=== PATIENT | male | born 1955 | race Caucasian/White ===

== ENCOUNTER 2025-02-21 01:03 | Day surgery (SDC) | payer MEDICARE, OTHER, SELFPAY ==
[2025-02-07 15:41] VITALS: BMI 33.0
--- OUTSIDE RECORDS SUMMARY | 2025-02-21 01:05 | XMS_ITS | Referral Summary ---
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 Name Role Phone Sravani Castellanos MD Primary Care Provider [phone] Nilesh Myers OT Unavailable Unavailable Windy Prieto MD Unavailable [phone] Encounters Date Type Department Care Team Description 01/25/2025 9:15 AM CDT Office Visit [facility] Cardiology [address] [place] [address] 162 [address] [place] [address] Kavon Lafleur MD Bilateral lower extremity edema (Primary Dx); Coronary artery disease of [place] artery of [place] heart with stable angina pectoris; Hyperlipidemia LDL goal <70; Primary hypertension; MICK (obstructive sleep apnea) 01/18/2025 7:41 AM CDT - 01/18/2025 11:59 PM CDT Hospital Encounter [facility] Orthopedics and Sports Medicine [address] [place] [address] [address] [place] [phone] Discharge Disposition: Discharge to home or self care 01/18/2025 10:00 AM CDT Office Visit [facility] Orthopedics and Sports Medicine [address] [place] [address] [address] [place] [phone] Ada Gale PA Aftercare following right hip joint replacement surgery (Primary Dx) 12/21/2024 9:30 AM CDT Telemedicine [facility] Medical [facility] Orthopedics and Sports Medicine [address] [facility] [address] [place] [address] Ada Gale PA Aftercare following right hip joint replacement surgery (Primary Dx) 12/06/2024 Telephone [facility] Orthopedics and Sports Medicine [address] [facility] [address] [place] [address] Windy Prieto MD 12/03/2024 [facility] Post Discharge Follow up phone call [facility] 1 [place] [address] Adrienne Carmen 11/29/2024 11:02 AM CDT - 11/30/2024 11:30 AM CDT Hospital Encounter [facility] 1 [place] [address] Windy Prieto MD Primary osteoarthritis of right hip Discharge Disposition: Discharge to home or self care 11/29/2024 1:05 PM CDT - 11/29/2024 3:30 PM CDT Surgery [facility] Operating Room 1 [place] [address] Windy Prieto MD Right Total Hip Arthroplasty- Anterior Approach 11/29/2024 12:22 PM CDT Anesthesia Event [facility] Operating Room 1 [place] [address] Josep Haile MD from Last 3 Months Allergies No known active allergies Medications latanoprost (XALATAN) 0.005 % ophthalmic solution 09/11/19 19 Active levothyroxine (SYNTHROID, LEVOTHROID) 175 mcg tablet Take 1 tablet (175 mcg total) by mouth tube coater before breakfast Active multivitamin tablet Take 1 tablet by mouth Active nitroglycerin (NITROSTAT) 0.[address] 1 tablet (0.4 mg total) under the tongue every 5 (five) minutes as needed for chest pain 90 tablet 10/27/19 24 Active aspirin 81 mg enteric coated tabletIndications: Deep Vein Thrombosis Prevention Take 1 tablet (81 mg total) by mouth 2 (two) times a day 84 tablet 12/01/19 25 026 Active lisinopriL (PRINIVIL,ZESTRIL) 20 mg tablet TAKE 1 TABLET DAILY 90 tablet 3 01/22/20 25 Active atorvastatin (LIPITOR) 40 mg tabletIndications: Coronary artery disease of [place] artery of [place] heart with stable angina pectoris,Hyperlipi demia LDL goal <70 TAKE 1 TABLET DAILY 90 tablet 3 01/22/20 25 Active omega-3 fatty acids-fish oil 300-1,000 mg capsule Take 2 capsules (2 g total) by mouth daily Active furosemide (LASIX) 20 mg tabletIndications: Bilateral lower extremity edema Take 1 tablet (20 mg total) by mouth daily as needed (swelling) 30 tablet 1 01/26/20 25 Active metoprolol tartrate (LOPRESSOR) 25 mg immediate release tabletIndications: Coronary artery disease of [place] artery of [place] heart with stable angina pectoris Take 1 tablet (25 mg total) by mouth 2 (two) times a day 180 tablet 3 01/26/20 25 Active ascorbic acid (VITAMIN C) 500 mg tablet,chewableInd ications:Vitamin deficiency prevention Take 1 tablet/chew tab (500 mg total) by mouth daily 30 tablet/chew tab 12/01/19 25 025 Discontin ued(Thera py completed ) celecoxib (CeleBREX) 200 mg capsuleIndications :Pain Take 1 capsule (200 mg total) by mouth 2 (two) times a day 84 capsule 12/01/19 25 025 Discontin ued(Thera py completed ) ferrous sulfate 325 mg (65 mg of elemental iron) tabletIndications: Iron Deficiency Anemia,Anemia prevention Take 1 tablet (325 mg total) by mouth daily with breakfast 30 tablet 12/01/19 25 025 Discontin ued(Thera py completed ) ondansetron ODT (ZOFRAN-ODT) 4 mg disintegrating tabletIndications: nausea and vomiting Take 1 tablet (4 mg total) by mouth every 6 (six) hours as needed for nausea or vomiting 20 tablet 2 12/01/19 25 025 Discontin ued(Thera py completed ) oxyCODONE-acetamin ophen (PERCOCET) 5-325 mg per tabletIndications: Pain Take 1-2 tablets by mouth every 4 (four) hours as needed for pain 40 tablet 12/01/19 25 025 Discontin ued(Thera py completed ) senna-docusate (PERICOLACE) 8.6-50 mgIndications:cons tipation Take 2 tablets by mouth 2 (two) times a day 60 tablet 2 12/01/19 25 025 Discontin ued(Radha py completed ) metoprolol tartrate (LOPRESSOR) 25 mg immediate release tabletIndications: Coronary artery disease of [place] artery of [place] heart with stable angina pectoris TAKE 1 TABLET TWICE A DAY 180 tablet 3 01/22/20 25 025 Discontin ued(Reord er) Active Problems Problem Noted Date Diagnosed Date Bilateral lower extremity edema 01/25/2025 Aftercare following right hip joint replacement surgery 12/20/2024 Coronary artery disease of [place] artery of [place] heart with stable angina pectoris 12/04/2018 Hypertension 11/06/2018 Abnormal EKG 11/06/2018 Abnormal stress test 11/06/2018 Hypothyroidism 11/06/2018 Hyperlipidemia LDL goal <70 11/06/2018 MICK (obstructive sleep apnea) 11/06/2018 Resolved Problems Problem Noted Date Diagnosed Date Resolved Date Primary osteoarthritis of right hip 11/18/2024 12/20/2024 Bilateral primary osteoarthritis of hip 10/07/2024 12/20/2024 Immunizations Immunization Administration Dates Next Due Moderna SARS-CoV-2 Monovalen t Vaccination (12+ YRS) 11/06/2021,05/29/2021,10/26/2020,2020 Social History Tobacco Use Types Packs/Day Years Used Date Smoking Tobacco: Never Cigarettes Smokeless Tobacco: Never Tobacco Cessation:Counseling Given: Not Answered Comments:some second hand exposure to late grandfather AUDIT-C Answer Date Recorded Q1: How often do you have a drink containing alc ohol? 2-4 times a month 11/29/2024 Q2: How many drinks containi ng alcohol do you have on a typical day when you are drinking? 1 or 2 11/29/2024 Q3: How often do you have si x or more drinks on one occasion? Never 11/29/2024 Personal Safety Answer Date Recorded Have you ever been in or are you currently in a harmful physical or emotional relationship or is someone making you feel afraid or unsafe? Denies 11/29/2024 Sex and Gender Information Value Date Recorded Sex Assigned at Not on file Legal Sex Male 7:25 PM LOOP SEWER Gender Identity Male 10/14/2019 10:45 PM CDT Sexual Orientation Straight 10/14/2019 10 :45 PM CDT Last Filed Vital Signs Vital Sign Reading Time Taken Comments Blood Pressure 120/74 01/25/2025 9:17 AM CDT Pulse 62 01/25/2025 9:17 AM CDT Temperature 36.5 C (97.7 F) 11/30/2024 7:47 AM CDT Respiratory Rate 18 11/30/2024 7:47 AM CDT Oxygen Saturation 95% 01/25/2025 9:17 AM CDT Inhaled Oxygen Concentration - - Weight 117 kg (258 lb) 01/25/2025 9:17 AM CDT Height 185.4 cm (6' 1) 01/25/2025 9:17 AM CDT Body Mass Index 34.04 01/25/2025 9:17 AM CDT Plan of Treatment Not on file Medical Devices Implanted Type Area Chicken Catcher Device Identifier Shelf Expiration Date Model / Serial / Lot [employer]uy [employer] [place] 62mm 36mm Hip Neutral Liner Acetabular Altrx Sterile Latex Free [id number] - [id number] Implanted:Qty: 1 on 11/29/2024 by Windy Prieto MD at [facility] Right: Hip [employer] [id number] 05/03/2029 [id number] / / [id number] [employer] [place] 62mm Sector Hip Shell Acetabular Gription Sterile Latex Free [id number] - [id number] Implanted:Qty: 1 on 11/29/2024 by Windy Prieto MD at [facility] Right: Hip [employer] [id number] 12/01/2033 [id number] / / [id number] [employer] [place] 6.5mm 35mm Acetabular Cancellous Screw Bone Sterile 1217-35-500 - [id number] Implanted:Qty: 1 on 11/29/2024 by Windy Prieto MD at [facility] Right: Hip [employer] [id number] 09/03/2034 1217-35-500 / / [id number] [employer] Actis L107 Mm Collar Hip 6 High Offset Stem Femoral [id number] - [id number] Implanted:Qty: 1 on 11/29/2024 by Windy Prieto MD at [facility] Right: Hip [employer] [id number] 10/01/2034 [id number] / / [id number] [employer] Articul/Zachary 36mm Cementless Hip +5mm 12/14 Taper Head Femoral Latex Free [id number] - [id number] Implanted:Qty: 1 on 11/29/2024 by Windy Prieto MD at [facility] Right: Hip [employer] [id number] 10/01/2029 [id number] / / [id number] Procedures Procedure Name Priority Date/Time Associated Diagnosis Comments POCT LIPID PANEL Routine 01/25/2025 9:17 AM CDT Coronary artery disease of [place] artery of [place] heart with stable angina pectoris Hyperlipidemia LDL goal <70 XR HIP RIGHT 2 OR 3 VIEWS Schedule Routine, Read Routine (OP Routine) 01/18/2025 9:37 AM CDT Aftercare following right hip joint replacement surgery SURGICAL PATHOLOGY Routine 11/30/2024 1: 50 PM CDT Primary osteoarthritis of right hip EGFR Routine 11/30/2024 4:55 AM CDT CBC WITHOUT DIFFERENTIAL Routine 11/30/2024 4:55 AM CDT BASIC METABOLIC PANEL Routine 11/30/2024 4:55 AM CDT XR PELVIS ORTHO VIEW IP Routine 11/29/2024 3:08 PM CDT FL FLUOROSCOPY < 1 HOUR IP Routine 11/29/2024 2:17 PM CDT XR HIP RIGHT 1 VIEW IP Routine 11/29/2024 2 :17 PM CDT ANESTHESIA SPINAL BLOCK Routine 11/29/2024 12:52 PM CDT ARTHROPLASTY TOTAL HIP - ANTERIOR APPROACH 11/29/2024 12:03 PM CDT Primary osteoarthritis of right hip Special Needs Anterior Approach, [Depuy- Actis], Omnitrac, Aquamantys, 1 Liter Beta Rinse, Pt to Stay PROTIME-INR STAT 11/29/2024 11:29 AM CDT APTT STAT 11/29/2024 11:29 AM CDT PSA SCREEN Routine 11/04/2024 9:23 AM CDT from Last 3 Months or Most Recently Relevant to Health Maintenance Results * POCT lipid panel (01/25/2025 9:17 AM CDT) Cholesterol, POC 122 <200 MG/DL HDL, POC 42 >=40 mg/dL Triglycerides, POC 113 <=149 mg/dL LDL Cholesterol POC 58 <=129 mg/dL Chol/HDL Ratio, POC 1.4 NONE Non-HDL Cholesterol, POC 81 NONE mg/dL Cholesterol Total, POC 122 30 - 199 mg/dL Capillary blood 01/25/2025 9 :17 AM CDT Kavon Lafleur MD POINT OF CARE TEST ORDERA BLES Final Result * XR Hip Right 2 or 3 Views (01/18/2025 9:37 AM CDT) Anatomical Region Laterality Modality Lower Extremities, Hip, Pelvis Right D igital Radiography Narrative 01/18/2025 10:22 AM CDT Radiographs taken of the right hip today reveal a total hip arthroplasty in appropriate position with no interval change from the time of surgery. Ada ARAMBULA IMG XR PROCEDURES Fin al Result * Surgical pathology (11/30/2024 1:50 PM CDT) Tissue (Bone Fragment(s),) 11/29/2024 1:49 PM CDT Narrative PATHOLOGY [facility] ([facility]) - 12/03/2024 9:43 AM CDT EPIC results best viewed via link to PDF [facility] Department of Pathology [address] [place] [id number] Note to Patients: This report may contain a detailed description of human tissue sent by a health care provider to the laboratory for pathologic evaluation. The content of this report is essential for diagnosis and may provide important critical findings. This information may be unfamiliar to patients to review without a medical professional present. It is advised that the patient review this report in the presence of a health care provider who can answer questions and explain the details. Final Report Patient Name: WINDY BOGGS Address: [address] [place] [address] , [place] [address] Gender: M : 1955 (Age: 69) Service: Surgery Location: [facility] Hospital #: [id number] Patient Type: [facility] OP in bed Taken: 11/30/2024 Received: 11/30/2024 Accessioned: 11/30/2024 Reported: 12/03/2024 Physician(s):Dr. Windy Prieto M.D. Diagnosis: Right hip, arthroplasty: - Degenerative joint disease consistent with osteoarthritis. nAtonio Light M.D. Report Electronically Reviewed and Signed Out By Antonio Light M.D. 12/03/2024 09:43:56 Specimen(s) Received: A: Right hip bone fragments and tissue Microscopic Description: Sections show fragments of benign bone and cartilage. The overlying articular cartilaginous surface shows degenerative features including areas of erosion with fissures and clefting. The underlying medullary space shows some focal medullary fibrosis with a few scattered lymphoid aggregates present. No significant inflammatory infiltrate is seen. There is no evidence of malignancy. In order to further assess the small lymphoid aggregates, a panel of immunohistochemical stains was performed with adequate controls. A CD3, CD5, CD20, and CD79a show the lymphocytes to be a mix of T and B-cells. There is no aberrant expression of CD5 or CD10 seen. CD23 and cyclin-D1 are also negative. There is no definitive evidence of a lymphoproliferative disorder. Clinical History: Right hip bone fragments and tissue. Right total hip arthroplasty - anterior approach. Gross Description: The specimen is received in a single container labeled WINDY BOGGS and right hip. It is a 6.1 cm in diameter femoral head and separate 20 cc aggregate of monae gritty hemorrhagic cortical and cancellous bone. The articular surface of the femoral head shows degenerative changes of the cartilage with erosion and eburnation. The femoral neck margin is smooth. The specimen is bisected revealing no subchondral gross lesions. Skiving Machine Operator sections are submitted in one cassette after decalcification. Ajay Alarcon R.N., P.A./Kelly Figueroa M.D. REPORT IMAGES AND SCANNED DOCUMENTS, IF INCLUDED, ONLY VIEWABLE IN PDF VERSION OF REPORT The performance characteristics of some immunohistochemical stains, fluorescence in-situ hybridization tests and immunophenotyping by flow cytometry cited in this report (if any) were determined by the Surgical Pathology Department at [facility] as part of an ongoing quality internship program and in compliance with federally mandated regulations drawn from the Clinical Laboratory Improvement Act of 1988 (CLIA '88). Some of these tests rely on the use of analyte specific reagents and are subject to specific labeling requirements by the US Food and Drug Administration. Such diagnostic tests may only be performed in a facility that is certified by the Department of Health and Human Services as a high complexity laboratory under CLIA '88. The FDA has determined that such clearance or approval is not necessary. This test is used for clinical purposes. It should not be regarded as investigational or for research. Nevertheless, federal rules concerning the medical use of analyte specific reagents require that the following disclaimer be attached to the report: This test was developed and its performance characteristics determined by the Surgical Pathology Department [facility]. It has not been cleared or approved by the U. S. Food and Drug Administration. Note for decalcified specimens: This assay has not been validated on decalcified tissues. Results should be interpreted with caution given the possibility of false negativity on decalcified specimens us Windy Prieto MD LAB PATHOLOGY ORDERABLES Final Result PATHOLOGY [facility] ([facility]) 1 [place], [place] [id number] * eGFR (11/30/2024 4:55 AM CDT) eGFR >90 >=60 mL/min/1. 73 m2 Comment: Interpretive Data Reference Interval Normal >/= 90 mL/min/1.73m2 Mildly decreased* 60 - 89 mL/min/1.73m2 Mildly to moderately decreased 45 - 59 mL/min/1.73m2 Moderately to severely decreased 30 - 44 mL/min/1.73m2 Severely decreased 15 - 29 mL/min/1.73m2 Kidney Failure < 15 mL/min/1.73m2 *Relative to young adult level Estimated glomerular filtration rate is determined by the 2020 CKD-EPI equation recommended by the National Kidney Foundation (A Unifying Approach to GFR Estimation: Recommendations of the NKF-ASK Task Force on Reassessing the Inclusion of Race in Diagnosing Kidney Disease, JASN 2020). The CKD-EPI equation should not be used for patients with unstable renal function and has not been validated in children and those over 70. Current interpretive data was last reviewed 2021. Blood 11/30/2024 4:55 AM CDT 11/30/2024 5:16 AM CDT Ada ARAMBULA LAB BLOOD ORDERABLES Final Result [facility] ([facility]) [address] [facility] Department of Laboratories [place], [place] [id number] * (ABNORMAL) CBC without differential (11/30/2024 4:55 AM CDT) WBC 16.19(H) 3.80 - 9.90 K/cumm Hgb 13.3 13.0 - 17.5 g/dL [facility] ([facility]) Hct 40.4 38.9 - 50.3 % [facility] ([facility]) Plt 235 150 - 400 K/cumm [facility] ([facility]) MPV 10.6 9.1 - 12.3 fL [facility] ([facility]) RBC 4.45 4.30 - 5.80 M/cumm [facility] ([facility]) MCV 90.8 81.3 - 96.4 fL [facility] ([facility]) MCH 29.9 27.1 - 33.3 pg [facility] ([facility]) MCHC 32.9 32.3 - 35.7 g/dL [facility] ([place]) RDW CV 13.5 11.1 - 14.9 % [facility] ([place]) RDW SD 44.8 35.7 - 48.1 fL [facility] NRBC abs 0.00 0.00 - 0.01 K/cumm [facility] ([place]) Blood 11/30/2024 4:55 AM CDT 11/30/2024 5:16 AM CDT Ada ARAMBULA LAB BLOOD ORDERABLES Final Result [facility] ([facility]) 1 [facility] Department [place] [address] * Basic metabolic panel (11/30/2024 4:55 AM CDT) Sodium 141 135 - 145 mmol/L Potassium, pl 4.4 3.3 - 4.9 mmol/L [facility] Chloride 109 97 - 110 mmol/L [facility]) CO2 22 22 - 32 mmol/L [facility] ([facility]) Anion gap 11 2 - 15 mmol/L [facility] BUN 14 6 - 25 mg/dL [facility] Creatinine 0.88 0.80 - 1.30 mg/dL [facility] Glucose 140 70 - 199 mg/dL [facility] ([facility]) Comment: Interpretive Data Fasting glucose >/= 126 mg/dl is diagnostic for diabetes. Fasting is defined as no caloric intake for at least 8 hours. Fasting glucose between 100 mg/dl to 125 mg/dl is diagnostic of prediabetes. In a patient with classic symptoms of hyperglycemia or hyperglycemic crisis, a random glucose >/= 200 mg/dl is diagnostic for diabetes. In the absence of unequivocal hyperglycemia, results should be confirmed by repeat testing. The classification and Diagnosis of Diabetes Diabetes Care 2021; 46: S19-S40. Current interpretive data was last revised 2022. Calcium 8.9 8.5 - 10.3 mg/dL [facility] ([facility] Blood 11/30/2024 4:55 AM CDT 11/30/2024 5:16 AM CDT Ada AARMBULA LAB BLOOD ORDERABLES Final Result [facility] [place] 1 [facility] Department [place] [address] * XR Pelvis Ortho View (11/29/2024 3:08 PM CDT) Anatomical Region Laterality Modality Body, Pelvis N/A Computed Radiogr aphy 11/29/2024 5:24 PM CDT Narrative 11/29/2024 5:24 PM CDT EXAM DESCRIPTION: XR PELVIS ORTHO VIEW REASON FOR STUDY: in pacu s/p aminata Post op TECHNIQUE: Frontal radiograph of the pelvis. COMPARISON: None FINDINGS: BONES/JOINTS: Right hip arthroplasty. Advanced left hip arthritis. SOFT TISSUES: Unremarkable. IMPRESSION: Uncomplicated appearance of right hip arthroplasty. Severe left hip arthritis. THIS IS AN ELECTRONICALLY VERIFIED FINAL REPORT 11/29/2024 5:24 PM - Electronically signed by North Gutierrez M.D. AR: WAN Report ID: [id number] Reading Location: [id number] Procedure Note North Gutierrez MD - 11/29/2024 EXAM DESCRIPTION: XR PELVIS ORTHO VIEW REASON FOR STUDY: in pacu s/p aminata Post op TECHNIQUE: Frontal radiograph of the pelvis. COMPARISON: None FINDINGS: BONES/JOINTS: Right hip arthroplasty. Advanced left hip arthritis. SOFT TISSUES: Unremarkable. IMPRESSION: Uncomplicated appearance of right hip arthroplasty. Severe left hip arthritis. THIS IS AN ELECTRONICALLY VERIFIED FINAL REPORT 11/29/2024 5:24 PM - Electronically signed by North Gutierrez M.D. AR: WAN Report ID: [id number] Reading Location: [id number] Ada ARAMBULA IMG XR PROCEDURES Fin al Result * FL Fluoroscopy < 1 Hour (11/29/2024 2:17 PM CDT) Narrative [facility] - 11/29/2024 2:20 PM CDT The images from this study are not interpreted by Radiology. Please refer to the physician's procedure / OR operative note. Windy Prieto MD IMG FLUOROSCOPY PROCEDUR ES Final Result [facility] * XR Hip Right 1 View (11/29/2024 2:17 PM CDT) Anatomical Region Laterality Modality Lower Extremities, Hip, Pelvis Right R adio Fluoroscopy 11/29/2024 5:23 PM CDT Narrative 11/29/2024 5:23 PM CDT EXAM DESCRIPTION: XR HIP RIGHT 1 VIEW REASON FOR STUDY: pain Fluoro 4.3 mGy 0.83 TECHNIQUE: 8 fluoroscopic views of the right hip . COMPARISON: 10/07/2024 FINDINGS: BONES/JOINTS: Progressive placement of a right hip arthroplasty is demonstrated. No complication is seen. SOFT TISSUES: Unremarkable. IMPRESSION: Fluoroscopic guidance for right hip arthroplasty. THIS IS AN ELECTRONICALLY VERIFIED FINAL REPORT 11/29/2024 5:23 PM - Electronically signed by North Gutierrez M.D. AR: WAN Report ID: [id number] Reading Location: [id number] Procedure Note North Gutierrez MD - 11/29/2024 EXAM DESCRIPTION: XR HIP RIGHT 1 VIEW REASON FOR STUDY: pain Fluoro 4.3 mGy 0.83 TECHNIQUE: 8 fluoroscopic views of the right hip . COMPARISON: 10/07/2024 FINDINGS: BONES/JOINTS: Progressive placement of a right hip arthroplasty is demonstrated. No complication is seen. SOFT TISSUES: Unremarkable. IMPRESSION: Fluoroscopic guidance for right hip arthroplasty. THIS IS AN ELECTRONICALLY VERIFIED FINAL REPORT 11/29/2024 5:23 PM - Electronically signed by North Gutierrez M.D. AR: WAN Report ID: [id number] Reading Location: [place] [address] Widny Prieto MD IMG XR PROCEDURES Final Result * Spinal Block (11/29/2024 12:52 PM CDT) Narrative Yuly Mi CRNA - 11/29/2024 12:52 PM CDT Yuly Mi CRNA 11/29/2024 12:53 PM Spinal Block Patient location: OR End time: 11/29/2024 12:26 PM Reason for block: primary anesthetic Staff: Placed by: TELECOMMUNICATOR SUPERVISOR:Yuly Mi CRNA Procedure prep: Preprocedure checklist: patient identified, procedure contraindications assessed, procedure consent, surgical consent, IV checked, risks, benefits and alternatives discussed, monitors and equipment checked and timeout performed Patient position: sitting Procedure performed while patient: sedate with meaningful contact Monitoring: oximetry and blood pressure Prep solution: chlorhexadine/alcohol PPE: provider hat/mask, sterile gloves and sterile drape Skin infiltrated with lidocaine 1%: yes Spinal: Approach: midline Introducer used: no Location: L3-4 Spinal injection: CSF demonstrated, no aspiration of heme and no paresthesias noted Number of attempts: 1 Spinal Needle: Needle type: Quincke Needle gauge: 22 G Needle length: 9 cm Assessment: Sensory deficit - left: full eval pending Sensory deficit - right: full eval pending Events: patient tolerated procedure well with no complications Josep Haile MD ANESTHESIA ORDERABLES Final Result * aPTT (11/29/2024 11:29 AM CDT) aPTT 38 28 - 38 sec [facility] ([place]) Comment: Interpretive Data Heparin therapeutic range: 66.0 - 100.0 seconds. Range based on correlation with therapeutic heparin activity range of 0.3 - 0.7 Units/mL. Current interpretive data was last revised on 2023. Blood 11/29/2024 11:2 9 AM CDT 11/29/2024 11:31 AM CDT Windy Prieto MD LAB BLOOD ORDERABLES Fin al Result [facility]) 1 [facility] [facility] [employer] (R[employer]) [place] [address] * Protime-INR (11/29/2024 11:29 AM CDT) PT 12.4 9.7 - 13.0 sec [facility] [place] INR 1.14 0.90 - 1.20 [facility] ([place]) Comment: Interpretive data Oral anticoagulant therapeutic ranges: Venous thromboembolism prophylaxis or treatment: 2.0-3.0 CARDIOLOGY Standard range: 2.0-3.0 High-intensity range: 2.5-3.5 Refer to indication-specific guidelines for appropriate target ranges for prosthetic heart valve replacement. Current interpretive data was last revised on 2019. Blood 11/29/2024 11:2 9 AM CDT 11/29/2024 11:31 AM CDT Windy Prieto MD LAB BLOOD ORDERABLES Fin al Result Performing Organization Address City/[facility] Co de Phone Number M[facility] Lopez[place]) 1 [facility] [place] [address] * PSA screen (11/04/2024 9:23 AM CDT) PSA-Total 5.71 <=6.20 ng/mL Comment: Interpretive Data AGE SEX REFERENCE INTERVAL 0 minutes-150 years Female None 0 minutes-49 years Male None 50-59 years Male 0-3.90 60-69 years Male 0-5.40 70-79 years Male 0-6.20 80-150 years Male 0-6.20 The Renuka PSA Total assay procedure was used. Results from different manufacturers or methods may not be comparable. Serial testing should be performed using the same method. Current interpretive data last revised 21. Blood 11/04/2024 9:23 AM CDT 11/04/2024 9:37 AM CDT Sravani Castellanos MD LAB BLOOD ORDERABLES Final Resu lt [facility] ([place]) 1 [facility] Department of [employer] 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
--- OUTSIDE RECORDS SUMMARY | 2025-02-21 01:06 | XMS_ITS | Clinical Summary ---
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 Active multivitamin tablet Take 1 [...] 40 mg tabletIndications: 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,Hyperlipi demia LDL [...] immediate release tabletIndications: 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 Take 1 [...] 60 tablet 2 12/01/19 25 025 Discontin ued(Thera py completed ) metoprolol tartrate (LOPRESSOR) 25 mg immediate release tabletIndications: 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 TAKE 1 TABLET TWICE A DAY 180 tablet 3 01/22/20 25 025 Discontin ued(Reord er) Active Problems Problem Noted Date Diagnosed Date Bilateral lower extremity edema 01/25/2025 Aftercare following right hip joint replacement surgery 12/20/2024 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 12/04/2018 Hypertension 11/06/2018 Abnormal EKG 11/06/2018 Abnormal stress test 11/06/2018 Hypothyroidism 11/06/2018 Hyperlipidemia LDL goal <70 11/06/2018 MICK (obstructive sleep apnea) 11/06/2018 Resolved Problems Problem Noted Date Diagnosed Date Resolved Date Primary osteoarthritis of right hip 11/18/2024 12/20/2024 Bilateral primary osteoarthritis of hip 10/07/2024 12/20/2024 Encounters Date Type Department Care Team Description 01/25/2025 9:15 AM CDT Office Visit [facility] Medical [facility] Cardiology [address] [facility] [address] [place] [address] Kavon Lafleur MD Bilateral lower extremity edema (Primary Dx); 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; Hyperlipidemia LDL goal <70; Primary hypertension; MICK (obstructive sleep apnea) 01/18/2025 10:00 AM CDT Office Visit [facility] Medical [facility] Orthopedics and Sports Medicine [address] [place] [address] [place] [phone] Ada Gale PA Aftercare following right hip joint replacement surgery (Primary Dx) 01/18/2025 7:41 AM CDT - 01/18/2025 11:59 PM CDT Hospital Encounter [facility] Orthopedics and Sports Medicine [address] [place] [address] [address], [place] [phone] Discharge Disposition: Discharge to home or self care 12/21/2024 9:30 AM CDT Telemedicine [facility] Orthopedics and Sports Medicine [address] [place] [address] [address] [place] [phone] Ada Gale PA Aftercare following right hip joint replacement surgery (Primary Dx) 12/06/2024 Telephone [facility] Orthopedics and Sports Medicine [address] [facility] [address] [place] [phone] Windy Prieto MD 12/03/2024 [facility] Post Discharge Follow up phone call [facility] Surgery Care 1 [place] [address] Adrienne Carmen 11/29/2024 1:05 PM CDT - 11/29/2024 3:30 PM CDT Surgery [facility] Operating Room 1 [place] [address] Windy Prieto MD Right Total Hip Arthroplasty- Anterior Approach 11/29/2024 12:22 PM CDT Anesthesia Event [facility] Operating Room 1 [place] [address] Josep Haile MD 11/29/2024 11:02 AM CDT - 11/30/2024 11:30 AM CDT Hospital Encounter [facility] Surgery Care 1 [place] [address] Windy Prieto MD Primary osteoarthritis of right hip Discharge Disposition: Discharge to home or self care from Last 3 Months Immunizations Immunization Administration Dates Next Due Moderna SARS-CoV-2 Monovalen t Vaccination (12+ YRS) 11/06/2021,05/29/2021,10/26/2020,2020 Surgical History Surgery Date Site/Laterality Comments COLONOSCOPY CARDIAC CATHETERIZATION WISDOM TOOTH EXTRACTION JOINT REPLACEMENT right hip 11/29/24 Medical History Medical History Date Comments Glaucoma pre-glaucoma 2011 Heart disease 2019 Hypertension ~2008 Sleep apnea ~2004 Thyroid disease 2009 [place] (myocardial infarction) (HCC) Family History Medical History Relation Name Comments Heart attack Father Windy Cancer Mother Priya Relation Name Status Comments Father Windy Mother Priya Social History Tobacco Use Types Packs/Day Years [...] on file Legal 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 Gender Identity Male 10/14/2019 10:45 PM CDT Sexual Orientation Straight 10/14/2019 10 :45 PM CDT Obstetrics History Last Filed Vital Signs Vital Sign Reading [...] 01/25/2025 9:17 AM CDT Plan of Treatment Health Maintenance Due Date Last Done Comments Colon Cancer Screening-Colonoscopy 1955 Depression Screening 1955 Hepatitis C Screening 1955 Hepatitis B Screening 1971 Pneumococcal vaccine 65+ (1 of 2 - PCV) 1972 Zoster Vaccine (2 of 3) 05/30/2015 04/04/2015 Well Visit 65+ 2018 DTaP/Tdap/Td Vaccine (2 - Td or Tdap) 03/02/2022 03/02/2012, 08/04/2002, 08/04/1990 Covid-19 Vaccine ( - 2023-2 5 season) 2024 11/06/2021, 05/29/2021, 10/26/2020, Additional history exists Influenza Vaccine (Season Ended) 2025 Fall Risk Assessment 11/30/2025 11/30/2024, 11/18/2024, 11/06/2018 Prostate Cancer Screening-PSA Discontinued 11/04/2024 Medical Devices Implanted Type Area Primer Expeditor And Drier Device Identifier Shelf Expiration Date Model / Serial / Lot [employer] [place] 62mm 36mm Hip Neutral Liner Acetabular Altrx Sterile Latex Free [id number] - [id number] Implanted:Qty: 1 on 11/29/2024 by Windy Prieto MD at [facility] Right: Hip [employer] [id number] 05/03/2029 [id number] / / [id number] [employer] [place] 62mm Sector Hip Shell Acetabular Gription Sterile Latex Free [id number] - [id number] Implanted:Qty: 1 on 11/29/2024 by Windy Prieto MD at [facility] Right: Hip [employer] [id number] 12/01/2033 [id number] / / [id number] [employer] [place] 6.5mm 35mm Acetabular Cancellous Screw Bone Sterile 1217-35-500 - [id number] Implanted:Qty: 1 on 11/29/2024 by Windy Prieto MD at [facility] Right: Hip [employer] [id number] 09/03/2034 1217-35-500 / / [id number] [employer] Actis L107 Mm Collar Hip 6 High Offset Stem Femoral [id number] - [id number] Implanted:Qty: 1 on 11/29/2024 by Windy Prieto MD at [facility] Right: Hip [employer] [id number] 10/01/2034 [id number] / / [id number] [employer] Articul/Zachary 36mm Cementless Hip +5mm 12/14 Taper Head Femoral Latex Free [id number] - [id number] Implanted:Qty: 1 on 11/29/2024 by Windy Prieto MD at [facility] Right: Hip [employer] [id number] 10/01/2029 [id number] / / [id number] Procedures Procedure Name Priority Date/Time Associated Diagnosis Comments POCT LIPID PANEL Routine 01/25/2025 9:17 AM CDT 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 Hyperlipidemia LDL [...] Fragment(s),) 11/29/2024 1:49 PM CDT Narrative PATHOLOGY [facility] ([place]) - 12/03/2024 9:43 AM CDT EPIC results best viewed via link to PDF [facility] Department of Pathology [address] [place] [id number] Note to Patients: This report may contain [...] Final Report Patient Name: WINDY BOGGS Address: [address] [place] [address] , [place] [address] Gender: M : 1955 (Age: 69) Service: Surgery Location: [facility] #: [id number] Patient Type: [facility] EP OP in bed Taken: 11/30/2024 Received: 11/30/2024 Accessioned: 11/30/2024 Reported: 12/03/2024 Physician(s):Dr. Windy Prieot M.D. Diagnosis: Right hip, arthroplasty: - Degenerative joint disease consistent with osteoarthritis. Antonio Light M.D. Report Electronically Reviewed and Signed [...] is bisected revealing no subchondral gross lesions. Manager Cardiology sections are submitted in one cassette after decalcification. Ajay Alarcon R.N., P.A./Kelly Figueroa M.D. REPORT IMAGES AND SCANNED DOCUMENTS, IF INCLUDED, ONLY VIEWABLE IN PDF VERSION OF REPORT The performance characteristics of some immunohistochemical stains, fluorescence in-situ hybridization tests and immunophenotyping by flow cytometry cited in this report (if any) were determined by the Surgical Pathology Department at [facility] as part of an ongoing quality control lab tech program and in compliance with federally mandated [...] characteristics determined by the Surgical Pathology Department [facility]. It has not been cleared or approved by the U. S. Food and Drug Administration. Note for decalcified specimens: This assay has not been validated on decalcified tissues. Results should be interpreted with caution given the possibility of false negativity on decalcified specimens Windy Prieto MD LAB PATHOLOGY ORDERABLES Final Result PATHOLOGY [facility] ([address] [address] * eGFR (11/30/2024 4:55 AM CDT) eGFR [...] LAB BLOOD ORDERABLES Final Result [facility] ([place]) 1 [facility] [place] [address] * (ABNORMAL) CBC without differential (11/30/2024 4:55 [...] RDW CV 13.5 11.1 - 14.9 % [facility] ([place]) RDW SD 44.8 35.7 - 48.1 fL [facility] ([place]) NRBC abs 0.00 0.00 - 0.01 K/cumm [facility] ([place]) Blood 11/30/2024 4:55 AM CDT 11/30/2024 5:16 AM CDT Ada ARABMULA LAB BLOOD ORDERABLES Final Result [facility] ([place]) 1 [facility] [place] [address] * Basic metabolic panel (11/30/2024 4:55 AM CDT) Sodium 141 135 - 145 mmol/L Potassium, pl 4.4 3.3 - 4.9 mmol/L [facility] ([place]) Chloride 109 97 - 110 mmol/L [facility] ([place] CO2 22 22 - 32 mmol/L [facility]) Anion gap 11 2 - 15 mmol/L [facility] BUN 14 6 - 25 mg/dL [facility] ([place]) Creatinine 0.88 0.80 - 1.30 mg/dL [facility] ([place]) Glucose 140 70 - 199 mg/dL [facility] ([place]) Comment: Interpretive Data Fasting glucose [...] 2022. Calcium 8.9 8.5 - 10.3 mg/dL [facility] ([place]) Blood 11/30/2024 4:55 AM CDT 11/30/2024 5:16 AM CDT Ada ARAMBULA LAB BLOOD ORDERABLES Final Result [facility] ([place]) 1 [facility] [place] [address] * XR Pelvis Ortho View (11/29/2024 3:08 [...] North Gutierrez M.D. [place]: WAN Report ID: [id number] Reading Location: [id number] Procedure Note North Gutierrez MD - 11/29/2024 [...] North Gutierrez M.D. [place]: WAN Report ID: [id number] Reading Location: [id number] Ada ARAMBULA IMG XR PROCEDURES Fin al Result * [place] Fluoroscopy < 1 Hour (11/29/2024 2:17 PM CDT) Narrative [facility] - 11/29/2024 2:20 PM CDT The images from this study are not interpreted by Radiology. Please refer to the physician's procedure / OR operative note. us Windy Prieto MD IMG FLUOROSCOPY PROCEDUR ES [...] North Gutierrez M.D. [place]: WAN Report ID: [id number] Reading Location: [id number] Procedure Note North Gutierrez MD - 11/29/2024 [...] North Gutierrez M.D. [place]: WAN Report ID: [id number] Reading Location: [id number] Windy Prieto MD IMG XR PROCEDURES Final Result * Spinal Block (11/29/2024 12:52 PM CDT) Narrative Yuly Mi CRNA - 11/29/2024 12:52 PM CDT Yuly Mi CRNA 11/29/2024 12:53 PM Spinal Block Patient location: OR End time: 11/29/2024 12:26 PM Reason for block: primary anesthetic Staff: Placed by: FRONT END DRUPAL DEVELOPER:Yuly Mi CRNA Procedure prep: Preprocedure checklist: patient [...] patient tolerated procedure well with no complications us Josep Haile MD ANESTHESIA ORDERABLES Final Result * aPTT (11/29/2024 11:29 AM CDT) aPTT 38 28 - 38 sec [facility] ([place]) Comment: Interpretive Data Heparin therapeutic range: 66.0 - 100.0 seconds. Range based on correlation with therapeutic heparin activity range of 0.3 - 0.7 Units/mL. Current interpretive data was last revised on 2023. Blood 11/29/2024 11:2 9 AM CDT 11/29/2024 11:31 AM CDT Windy Prieto MD LAB BLOOD ORDERABLES Fin al Result [facility] ([place]) 1 [facility] [place] [address] * Protime-INR (11/29/2024 11:29 AM CDT) PT 12.4 9.7 - 13.0 sec [facility] ([place]) INR 1.14 0.90 - 1.20 [facility] ([place]) Comment: Interpretive data Oral anticoagulant therapeutic ranges: Venous thromboembolism prophylaxis or treatment: 2.0-3.0 CARDIOLOGY Standard range: 2.0-3.0 High-intensity range: 2.5-3.5 Refer to indication-specific guidelines for appropriate target ranges for prosthetic heart valve replacement. Current interpretive data was last revised on 2019. Blood 11/29/2024 11:2 9 AM CDT 11/29/2024 11:31 AM CDT Windy Prieto MD LAB BLOOD ORDERABLES Fin al Result Performing Organization Address [facility] de Phone Number [facility] ([place]) 1 [facility] [place] [place] [address] * PSA screen (11/04/2024 9:23 AM CDT) [...] 9:23 AM CDT 11/04/2024 9:37 AM CDT us Sravani Castellanos MD LAB BLOOD ORDERABLES Final Resu lt Performing Organization Address [facility] de Phone Number [facility] ([place]) 1 [place] [address] from Last 3 Months or Most Recently Relevant to Health Maintenance Insurance MEDICARE [facility] [place] [facility]ICARE [facility] [place] Advance Directives For more information, please contact: [phone] * Full Code (Latest Code Status on File) Date Activated Date Inactivated Comments 11/29/2024 3:14 PM 11/30/2024 3:36 PM Care Teams Schedule Clerk Relationship Specialty Start Date End Date Sravani Castellanos MD PCP - General Family Medicine 11/07/21 Nilesh Myers, OT Occupational Therapist Occupational Therapy 11/23/24 Windy Prieto MD [address] [place] [address] DR NDIAYE [address] [place] [id number] Surgeon Orthopedic Surgery 11/30/24
[2025-02-21 08:35] VITALS: BP 133/76; PULSE 63; RESP 16; TEMP 35.8; O2SAT 97; BMI 33.3
--- NOTE | 2025-02-21 08:46 | SUR.PREOP ---
Patient had a right hip replacement in november 2024. was notified and no antibiotics ordered per 's request.
--- NOTE | 2025-02-21 08:50 | WPDANESEPPF ---
Anes - Initial Pre Proc Eval Procedure: Operation Date: 02/21/25 10:00 Proposed Procedures p Screening Colonoscopy - Naeem Shaver MD Date/Time: 02/21/25 08:50 Surgeon: Naeem Shaver MD Pre Op Diagnosis: screening Patient Data Age: 69 Gender: M Height: 1.85 m Weight: 114.5 kg Last Vital Signs Temp 96.4 F L 02/21/25 08:35 Pulse 63 02/21/25 08:35 Resp 16 02/21/25 08:35 BP 133/76 02/21/25 08:35 Pulse Ox 97 02/21/25 08:35 O2 Del Method Room Air 02/21/25 08:35 Allergies Allergy/AdvReac Type Severity Reaction Status Date / Time No Known Allergies Allergy Verified 02/21/25 08:41 Home Medications ?Medication ?Instructions ?Recorded ?Confirmed ?Type aspirin 81 mg tablet,delayed 81 mg PO DAILY 07/21/19 02/21/25 History release (Aspir-) atorvastatin 40 mg tablet 40 mg PO HS 07/21/19 02/21/25 History latanoprost 0.005 % eye drops 1 drp ophthalmic (eye) HS 07/21/19 02/21/25 History metoprolol tartrate 25 mg tablet 25 mg PO BID 07/21/19 02/21/25 History nitroglycerin 0.4 mg sublingual 0.4 mg sublingual Q3-5M PRN Chest 07/21/19 02/07/25 History tablet Pain lisinopril 20 mg tablet 20 mg PO DAILY #90 tabs 11/20/20 02/21/25 Rx levothyroxine 175 mcg tablet 175 mcg PO DAILY #90 tabs 10/26/24 02/21/25 Rx multivitamin (Daily Multi-Vitamin 1 tablet PO DAILY 02/07/25 02/21/25 History tablet) omega 8-sgj-bfb-fish oil 1,000 mg 1 cap PO DAILY 02/07/25 02/21/25 History (120 mg-180 mg) capsule (Fish Oil) Patient hx anesthesia problems: none Family hx anesthesia problems: none Results Review: All pre-operative results and documents have been reviewed as part of the pre-operative evaluation. [facility] Past Medical History Medical History (Updated 06/06/23 @ 11:59 by Elizabeth Robledo, PA-C) BMI 34.0-34.9,adult Colon cancer screening Encounter for screening for malignant neoplasm of prostate Age-related nuclear cataract OU POAG (primary open-angle glaucoma) OU Seborrheic keratoses OU Alberto angioma OU Increased intraocular pressure H/O Graves' disease Hypothyroidism following radioiodine therapy Coronary artery disease Obesity MICK (obstructive sleep apnea) Hypertension Hyperlipidemia Surgical History Surgical History History of cardiac cath *80-90% occlusion in medium-sized diagonal branch *100% occlusion branch of circumflex artery - PCI unsuccessful *50-60% occlusion of RCA [place] teeth removed Family History Family History Father Myocardial infarct Grandparent Lung cancer Sibling Malignant neoplasm of prostate Father Acute myocardial infarction Sibling Malignant neoplasm of prostate Social History Social History (Updated 10/30/21 @ 11:56 by Zakiya Hua CMA) Smoking status: Never smoker Second hand tobacco smoke exposure: No Alcohol intake: current Drinks per week: 4 Alcohol use details: Beer/wine Substance use: never Substance use type: does not use Living arrangements: with family Occupation/Education: retired Additional occupation/education comments: 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 Gender identity (if verbalized by the patient): Male Sexual Orientation (if Verbalized by the Patient): Straight or Heterosexual Spiritual care concerns: No Agree to blood products: Yes Anes - Eval Final PreProcedure Day of Procedure 02/21/25 08:50 Patient weight: obese Heart: regular rate and rhythm Lungs: clear to auscultation Airway: Mallampati scale class III Neurological: alert and oriented Last oral intake: >/= 8 hours ASA classification: III Emergent: no Anesthetic plan: proceed Anesthesia type and monitoring: general GIVS and standard monitoring Results Review: All pre-operative results and documents have been reviewed as part of the pre-operative evaluation. Informed Consent: The patient's anesthetic plan and its attendant risks and benefits were discussed with the patient/family/POA. Questions were solicited and answers provided to the satisfaction of the patient/family/POA.
[2025-02-21] MEDS: LACTATED RINGERS 1,000 ML 150 ML IV CONT (08:56)
--- NOTE | 2025-02-21 09:31 | P.HP_ITS ---
H&P: [facility] History of Present Illness Date/Time: 02/21/25 09:31 Chief Complaint: history of colon polyps Narrative: The patient has a history of colonic polyps, the last colonoscopy was 5 years ago. Review of Systems Review of Systems: All systems reviewed & are unremarkable except as noted in HPI and below [facility] Past Medical History Medical History (Updated 02/21/25 @ 09:32 by Naeem Shaver MD) BMI 34.0-34.9,adult Colon cancer screening Encounter for screening for malignant neoplasm of prostate Age-related nuclear cataract OU POAG (primary open-angle glaucoma) OU Seborrheic keratoses OU Alberto angioma OU Increased intraocular pressure H/O Graves' disease Hypothyroidism following radioiodine therapy Coronary artery disease Obesity MICK (obstructive sleep apnea) Hypertension Hyperlipidemia Surgical History Surgical History History of cardiac cath *80-90% occlusion in medium-sized diagonal branch *100% occlusion branch of circumflex artery - PCI unsuccessful *50-60% occlusion of RCA [place] teeth removed Family History Family History Father Myocardial infarct Grandparent Lung cancer Sibling Malignant neoplasm of prostate Father Acute myocardial infarction Sibling Malignant neoplasm of prostate Social History Social History (Updated 10/30/21 @ 11:56 by Zakiya Hua [employer]) Smoking status: Never smoker Second hand tobacco smoke exposure: No Alcohol intake: current Drinks per week: 4 Alcohol use details: Beer/wine Substance use: never Substance use type: does not use Living arrangements: with family Occupation/Education: retired Additional occupation/education comments: 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 Gender identity (if verbalized by the patient): Male Sexual Orientation (if Verbalized by the Patient): Straight or Heterosexual Spiritual care concerns: No Agree to blood products: Yes Meds Home Medications and Allergies Home Medications ?Medication ?Instructions ?Recorded ?Confirmed ?Type aspirin 81 mg tablet,delayed 81 mg PO DAILY 07/21/19 02/21/25 History release (Aspir-) atorvastatin 40 mg tablet 40 mg PO HS 07/21/19 02/21/25 History latanoprost 0.005 % eye drops 1 drp ophthalmic (eye) 07/21/19 02/21/25 History metoprolol tartrate 25 mg tablet 25 mg PO BID 07/21/19 02/21/25 History nitroglycerin 0.4 mg sublingual 0.4 mg sublingual Q3-5M PRN Chest 07/21/19 02/07/25 History tablet Pain lisinopril 20 mg tablet 20 mg PO DAILY #90 tabs 11/20/20 02/21/25 Rx levothyroxine 175 mcg tablet 175 mcg PO DAILY #90 tabs 10/26/24 02/21/25 Rx multivitamin (Daily Multi-Vitamin 1 tablet PO DAILY 02/07/25 02/21/25 History tablet) omega 3-jtb-sgh-fish oil 1,000 mg 1 cap PO DAILY 02/07/25 02/21/25 History (120 mg-180 mg) capsule (Fish Oil) Allergies Allergy/AdvReac Type Severity Reaction Status Date / Time No Known Allergies Allergy Verified 02/21/25 08:41 Vital Signs Vital Signs - 24 hr 02/21/25 08:35 Temperature 96.4 F L Pulse Rate 63 Respiratory Rate 16 Blood Pressure 133/76 Pulse Oximetry 97 Oxygen Delivery Room Air Exam Narrative: The patient is deemed a good candidate for the procedure. Consent signed. Will proceed. Const: General: cooperative and healthy appearing Resp: Effort & Inspection: normal respiratory effort and able to speak in complete sentences Auscultation: clear to auscultation bilaterally Cardio: Rate: regular rate Rhythm: regular rhythm GI: Inspection: normal to inspection GI Palp: No No hepatosplenomegaly present Auscultation: normal bowel sounds Rectal Exam: deferred Skin: General skin exam: normal color Psych: Appearance: grossly normal Mental Status: mental status grossly normal Assessment and Plan Assessment and plan (1) History of colonic polyps: Code(s): Z86.0100 - Personal history of colon polyps, unspecified Status: Acute Assessment and Plan: The patient is deemed a good candidate for the procedure. Consent signed. Will proceed.
--- NOTE | 2025-02-21 10:09 | S_PTH ---
PATIENT: Dominic Burden Jr. LOC: [facility] U#:[id number] AGE/SX: 69/M ROOM: RE02/21/[address]: Naeem Shaver MD : [id number] BED: DIS: 02/21/2025 SPEC #: [id number] RECD: 02/21/25 11:55 STATUS: MIGUEL REQ #: [id number] TIMI: 02/21/25 10:[address]: Naeem Shaver DEPT: [facility] Surgical RECD BY: Yolanda Lora ENTERED: 02/21/25 11:55 SP TYPE: Surgical OTHR DR: Sravani CastellanosMD Tissues: A - Colon Polypectomy B - Colon Polypectomy Procedures: Hematoxylin and Eosin Stain Gross and Microscopic Level 4
[2025-02-21 10:11] VITALS: BP 104/58; PULSE 53; RESP 16; O2SAT 95
[2025-02-21 10:21] VITALS: BP 115/65; PULSE 58; RESP 20; O2SAT 98
[2025-02-21 10:31] VITALS: BP 125/76; PULSE 62; RESP 20; O2SAT 98
== END 2025-02-21 10:40 | disposition home or self-care (01) ==
PROVIDERS: PCP Family Medicine; Referring Provider Family Medicine; Visit Provider Internal Medicine Gastroenterology
PROC: 0DJD8ZZ Inspection of Lower Intestinal Tract, Via Natural or Artificial Opening Endoscopic (ICD-10-PCS; CPT 45378; principal; 2025-02-21 10:00)
DX: Z12.11 Encounter for screening for malignant neoplasm of colon (principal); D12.3 Benign neoplasm of transverse colon; D12.5 Benign neoplasm of sigmoid colon; K57.30 Diverticulosis of large intestine without perforation or abscess without bleeding; E66.9 Obesity, unspecified; Z68.33 Body mass index [BMI] 33.0-33.9, adult
CPT/HCPCS: 45385; 88305; J2003; J2704; J7120